=== PATIENT | female | born 1990 | race Caucasian/White ===

== ENCOUNTER → 2016-08-07 | Outpatient (REF) | payer BC, OTHER ==
[2016-08-08 13:55] LABS: CALCIUM OXALATE CRYSTALS LARGE
== END ==
LOC: M SFHCPLAZ 12:58
PROVIDERS: ATTEND Physician Assistant Medical
DX: R30.0 Dysuria (principal)

== ENCOUNTER → 2016-11-30 | Outpatient (REF) | payer OTHER | LOC: M SFHCPLAZ 14:44 | PROVIDERS: ATTEND Family Medicine | DX: J03.90 Acute tonsillitis, unspecified (principal) ==

== ENCOUNTER → 2017-04-10 | Outpatient (REF) | payer OTHER | LOC: M SFHCPLAZ 08:20 | DX: R19.7 Diarrhea, unspecified (principal); Z00.00 Encounter for general adult medical examination without abnormal findings; R11.2 Nausea with vomiting, unspecified; K59.00 Constipation, unspecified ==

== ENCOUNTER → 2017-04-11 | Outpatient (CLI) | payer OTHER ==
[2017-04-11 20:51] LABS: BASO # 0.1 10^3/uL (0.0-0.2); BASO % 0.3 % (0.0-1.0); EOS % 0.3 % (0.0-3.0); HEMATOCRIT 44.2 % (36.0-47.0); IMMATURE GRANULOCYTE # 0.1 10^3/uL (0-0); IMMATURE GRANULOCYTE % 0.6 % (0-0); LYMPH # 2.2 10^3/uL (1.5-6.5); LYMPH % 14.1 % (24.0-44.0); MEAN CORPUSCULAR HEMOGLOBIN 30.7 pg (27.0-33.0); MEAN CORPUSCULAR HGB CONC 33.9 g/dl (32.0-36.5); MEAN CORPUSCULAR VOLUME 90.6 fl (80.0-96.0); MONO # 0.8 10^3/uL (0.0-0.8); NEUTROPHILS # 12.5 10^3/uL (1.8-7.7); NEUTROPHILS % 79.7 % (36.0-66.0); PLATELET COUNT, AUTOMATED 305 10^3/uL (150-450); RED BLOOD COUNT 4.88 10^6/uL (4.00-5.40); RED CELL DISTRIBUTION WIDTH 12.1 % (11.5-14.5); WHITE BLOOD COUNT 15.6 10^3/uL (4.0-10.0)
[2017-04-11 21:17] LABS: ALBUMIN 4.4 GM/DL (3.2-5.2); ALBUMIN/GLOBULIN RATIO 1.33 (1.00-1.93); ALKALINE PHOSPHATASE 120 U/L (45-117); ALT/SGPT 43 U/L (12-78); ANION GAP 9 MEQ/L (8-16); AST/SGOT 83 U/L (7-37); BILIRUBIN,TOTAL 0.2 MG/DL (0.2-1.0); BLOOD UREA NITROGEN 9 MG/DL (7-18); CALCIUM LEVEL 9.2 MG/DL (8.5-10.1); CARBON DIOXIDE LEVEL 25 MEQ/L (21-32); CHLORIDE LEVEL 105 MEQ/L (98-107); CREATININE FOR GFR 0.71 MG/DL (0.55-1.02); FREE T4 1.03 NG/DL (0.76-1.46); GLOMERULAR FILTRATION RATE > 60.0 (>60); GLUCOSE, FASTING 115 MG/DL (70-100); POTASSIUM SERUM 3.6 MEQ/L (3.5-5.1); SODIUM LEVEL 139 MEQ/L (136-145); THYROID STIMULATING HORMONE 0.732 uIU/ML (0.358-3.740); TOTAL PROTEIN 7.7 GM/DL (6.4-8.2)
[2017-04-11 23:13] LABS: ERYTHROCYTE SEDIMENTATION RATE 6 mm/hr (0-20)
[2017-04-13 14:12] LABS: TISSUE TRANSGLUTAMINASE IgA <2 U/mL (0-3)
== END ==
LOC: M WUC 16:06
DX: Z00.00 Encounter for general adult medical examination without abnormal findings (principal); R19.7 Diarrhea, unspecified; R11.2 Nausea with vomiting, unspecified; K59.00 Constipation, unspecified
CPT/HCPCS: 84443

== ENCOUNTER → 2017-05-01 | Outpatient (REF) | payer OTHER | LOC: M SFHCPLAZ 11:09 | DX: Z12.4 Encounter for screening for malignant neoplasm of cervix (principal) | CPT/HCPCS: G0123 ==

== ENCOUNTER → 2017-05-02 | Outpatient (CLI) | payer OTHER ==
[2017-05-02 09:29] LABS: BASO # 0.1 10^3/uL (0.0-0.2); BASO % 0.4 % (0.0-1.0); EOS # 0.1 10^3/uL (0.0-0.50); EOS % 0.8 % (0.0-3.0); HEMATOCRIT 43.6 % (36.0-47.0); IMMATURE GRANULOCYTE % 0.3 % (0-3.0); LYMPH # 1.7 10^3/uL (1.5-6.5); LYMPH % 14.6 % (24.0-44.0); MEAN CORPUSCULAR HEMOGLOBIN 30.8 pg (27.0-33.0); MEAN CORPUSCULAR HGB CONC 34.4 g/dl (32.0-36.5); MEAN CORPUSCULAR VOLUME 89.5 fl (80.0-96.0); MONO # 0.7 10^3/uL (0.0-0.8); MONO % 6.1 % (0.0-5.0); NEUTROPHILS # 9.1 10^3/uL (1.8-7.7); NEUTROPHILS % 77.8 % (36.0-66.0); PLATELET COUNT, AUTOMATED 334 10^3/uL (150-450); RED BLOOD COUNT 4.87 10^6/uL (4.00-5.40); RED CELL DISTRIBUTION WIDTH 12.1 % (11.5-14.5); WHITE BLOOD COUNT 11.8 10^3/uL (4.0-10.0)
[2017-05-02 10:08] LABS: ALBUMIN 4.4 GM/DL (3.2-5.2); ALBUMIN/GLOBULIN RATIO 1.42 (1.00-1.93); ALKALINE PHOSPHATASE 122 U/L (45-117); ALT/SGPT 21 U/L (12-78); ANION GAP 10 MEQ/L (8-16); AST/SGOT 17 U/L (7-37); BILIRUBIN,TOTAL 0.4 MG/DL (0.2-1.0); BLOOD UREA NITROGEN 12 MG/DL (7-18); CALCIUM LEVEL 9.2 MG/DL (8.5-10.1); CARBON DIOXIDE LEVEL 24 MEQ/L (21-32); CHLORIDE LEVEL 105 MEQ/L (98-107); CREATININE FOR GFR 0.61 MG/DL (0.55-1.30); GLOMERULAR FILTRATION RATE > 60.0 (>60); GLUCOSE, FASTING 93 MG/DL (70-100); POTASSIUM SERUM 4.3 MEQ/L (3.5-5.1); SODIUM LEVEL 139 MEQ/L (136-145); TOTAL PROTEIN 7.5 GM/DL (6.4-8.2)
== END ==
LOC: M WUC 08:05
DX: R19.7 Diarrhea, unspecified (principal); R79.89 Other specified abnormal findings of blood chemistry

== ENCOUNTER 2019-04-19 23:41 | Emergency (ER) | payer BC, OTHER ==
[~2019-04-19] VITALS: Ht 152.4 cm; Wt 78.5 kg
[2019-04-20] MEDS ORDERED: AUGM875T28 PO (00:36)
[2019-04-20] MEDS ORDERED: AUGMENTIN 875 MG TAB PO ONE (00:45)
[2019-04-20 01:02] VITALS: BP 170/98
== END 2019-04-20 01:04 | disposition home or self-care (01) ==
LOC: M ED 23:41
DX: L05.01 Pilonidal cyst with abscess (principal)

== ENCOUNTER → 2023-07-25 | Outpatient (CLI) | payer MEDICARE, OTHER ==
[~2023-07-25] MED LIST: AUGM875T28 PO
[2023-07-25 16:00] LABS: BASO # 0.1 10^3/uL (0.0-0.2); BASO % 0.4 % (0.0-1.0); HEMOGLOBIN 16.3 g/dl (12.0-15.5); LYMPH # 1.3 10^3/uL (1.5-5.0); LYMPH % 7.9 % (24.0-44.0); MEAN CORPUSCULAR HEMOGLOBIN 32.7 pg (27.0-33.0); MEAN CORPUSCULAR VOLUME 96.4 fl (80.0-96.0); MONO # 0.9 10^3/uL (0.0-0.8); MONO % 5.5 % (2.0-8.0); NEUTROPHILS # 14.2 10^3/uL (1.5-8.5); NEUTROPHILS % 85.7 % (36.0-66.0); PLATELET COUNT, AUTOMATED 393 10^3/uL (150-450); RED BLOOD COUNT 4.98 10^6/uL (4.00-5.40); WHITE BLOOD COUNT 16.6 10^3/uL (4.0-10.0)
[2023-07-25 16:32] LABS: HEMOGLOBIN A1c 5.4 % (4.0-6.0)
[2023-07-25 16:49] LABS: HCG, SERUM QUALITATIVE NEGATIVE (NEGATIVE)
[2023-07-25 17:06] LABS: HIV 1&2 SCREEN NEGATIVE (NEGATIVE)
[2023-07-25 17:14] LABS: HEPATITIS C VIRUS ABY INDEX < 0.02 INDEX (<0.8)
[2023-07-25 17:17] LABS: ALBUMIN 3.6 G/DL (3.2-5.2); ALKALINE PHOSPHATASE 138 U/L (46-116); ALT/SGPT 64 U/L (7.0-40); AST/SGOT 53 U/L (<34); BILIRUBIN,TOTAL 0.5 MG/DL (0.3-1.2); BLOOD UREA NITROGEN < 5 MG/DL (9-23); CALCIUM LEVEL 10.5 MG/DL (8.5-10.1); CARBON DIOXIDE LEVEL 30 MMOL/L (20-31); CHLORIDE LEVEL 97 MMOL/L (98-107); CHOLESTEROL LEVEL 164 MG/DL (<200); CHOLESTEROL RISK RATIO 3.28 (<5); CREATININE FOR GFR 0.66 MG/DL (0.55-1.30); FREE T4 1.12 NG/DL (0.89-1.76); GLOMERULAR FILTRATION RATE > 60.0 (>60); GLUCOSE, FASTING 109 MG/DL (60-100); POTASSIUM SERUM 4.3 MMOL/L (3.5-5.1); SODIUM LEVEL 136 MMOL/L (136-145); THYROID STIMULATING HORMONE 0.933 uIU/ML (0.55-4.78); TOTAL PROTEIN 7.8 G/DL (5.7-8.2); TRIGLYCERIDES LEVEL 105 MG/DL (<150)
== END ==
LOC: M PLALAB 11:44
PROVIDERS: ATTEND Student in an Organized Health Care Education/Training Program
DX: Z76.89 Persons encountering health services in other specified circumstances (principal); Z11.3 Encounter for screening for infections with a predominantly sexual mode of transmission; Z30.016 Encounter for initial prescription of transdermal patch hormonal contraceptive device; E78.00 Pure hypercholesterolemia, unspecified

== ENCOUNTER → 2023-07-25 | Outpatient (REF) | payer MEDICARE | LOC: M SFHCPLAZ 10:46 | PROVIDERS: ATTEND Student in an Organized Health Care Education/Training Program | DX: Z76.89 Persons encountering health services in other specified circumstances (principal); Z11.3 Encounter for screening for infections with a predominantly sexual mode of transmission ==

== ENCOUNTER → 2024-01-01 | Outpatient (REF) | payer MEDICARE | LOC: M SFHCPLAZ 10:46 | PROVIDERS: ATTEND Student in an Organized Health Care Education/Training Program | DX: N94.9 Unspecified condition associated with female genital organs and menstrual cycle (principal) ==

== ENCOUNTER → 2024-01-01 | Outpatient (CLI) | payer MEDICARE ==
[2024-01-04 16:47] LABS: HSV SOURCE Serum; HSV-1 DNA Not Detected (Not Detected); HSV-2 DNA Not Detected (Not Detected)
== END ==
LOC: M PLALAB 11:15
PROVIDERS: ATTEND Student in an Organized Health Care Education/Training Program
DX: A60.04 Herpesviral vulvovaginitis (principal)

== ENCOUNTER → 2024-01-30 | Outpatient (CLI) | payer MEDICARE ==
[2024-01-30 15:56] LABS: HEPATITIS B SURFACE ANTIGEN NEGATIVE (NEGATIVE)
[2024-01-30 16:03] LABS: ALKALINE PHOSPHATASE 144 U/L (35-104); ALT/SGPT 43 U/L (7.0-40); AST/SGOT 60 U/L (<34); BILIRUBIN,TOTAL 0.4 MG/DL (0.3-1.2); BLOOD UREA NITROGEN < 5 MG/DL (9-23); CALCIUM LEVEL 9.2 MG/DL (8.5-10.1); CARBON DIOXIDE LEVEL 24 MMOL/L (20-31); CHLORIDE LEVEL 105 MMOL/L (98-107); CREATININE FOR GFR 0.52 MG/DL (0.55-1.30); GLOMERULAR FILTRATION RATE > 60.0 (>60); GLUCOSE, FASTING 93 MG/DL (60-100); HEPATITIS B SURFACE ANTIBODY NEGATIVE (POSITIVE); POTASSIUM SERUM 3.7 MMOL/L (3.5-5.1); SODIUM LEVEL 139 MMOL/L (136-145); TOTAL PROTEIN 7.7 G/DL (5.7-8.2)
== END ==
LOC: M PLALAB 12:47
PROVIDERS: ATTEND Internal Medicine Infectious Disease
DX: A60.00 Herpesviral infection of urogenital system, unspecified (principal)

== ENCOUNTER 2024-02-10 08:20 | Emergency (ER) | payer MEDICARE ==
[~2024-02-10] VITALS: Ht 152.4 cm; Wt 71.7 kg
[2024-02-10 08:23] VITALS: TEMP 98.1
[2024-02-10] MEDS ORDERED: OXYC1TAB23 (08:25)
[2024-02-10] MEDS ORDERED: LISI5TAB11 (08:25)
[2024-02-10] MEDS ORDERED: CHLORTHALIDONE 12.5MG PER 1/2 TABLET PO ONE (09:25)
[2024-02-10 09:42] VITALS: BP 150/95
[2024-02-10] MEDS: CHLORTHALIDONE 25 MG TAB PO ONE (09:43)
[2024-02-10] MEDS ORDERED: LISI5TAB11 PO (10:10)
[2024-02-10 10:29] VITALS: BP 154/99; O2SAT 100
== END 2024-02-10 10:30 | disposition home or self-care (01) ==
LOC: M ED 08:20
DX: I10 Essential (primary) hypertension (principal); R00.0 Tachycardia, unspecified; Z76.0 Encounter for issue of repeat prescription; Z79.899 Other long term (current) drug therapy

== ENCOUNTER 2024-05-28 11:25 | Emergency (ER) | payer MEDICARE ==
[~2024-05-28] VITALS: Ht 152.4 cm; Wt 71.5 kg
[~2024-05-28 11:25] MED LIST changes: +LISI5TAB11; +LISI5TAB11 PO; +OXYC1TAB23
[2024-05-28] MEDS ORDERED: TRIA0.1P12 (11:36)
[2024-05-28] MEDS ORDERED: SUCR1TAB56 (11:36)
[2024-05-28] MEDS ORDERED: LISI10TA22 (11:36)
[2024-05-28] MEDS ORDERED: ONDA-282 (11:36)
[2024-05-28] MEDS ORDERED: OMEP40CA5 (11:36)
[2024-05-28 14:48] LABS: BASO # 0.1 10^3/uL (0.0-0.2); BASO % 0.4 % (0.0-1.0); EOS # 0.1 10^3/uL (0.0-0.5); EOS % 0.6 % (0.0-3.0); HEMATOCRIT 44.6 % (36.0-47.0); LYMPH # 2.2 10^3/uL (1.5-5.0); LYMPH % 13.9 % (24.0-44.0); MEAN CORPUSCULAR HEMOGLOBIN 34.5 pg (27.0-33.0); MEAN CORPUSCULAR HGB CONC 33.6 g/dl (32.0-36.5); MEAN CORPUSCULAR VOLUME 102.5 fl (80.0-96.0); MONO # 0.9 10^3/uL (0.0-0.8); NEUTROPHILS # 12.3 10^3/uL (1.5-8.5); NEUTROPHILS % 78.5 % (36.0-66.0); PLATELET COUNT, AUTOMATED 521 10^3/uL (150-450); RED BLOOD COUNT 4.35 10^6/uL (4.00-5.40); WHITE BLOOD COUNT 15.7 10^3/uL (4.0-10.0)
[2024-05-28 14:57] LABS: KETONE, URINE AUTO RFX NEGATIVE (NEGATIVE); NITRITE, URINE AUTO RFX NEGATIVE (NEGATIVE); RBC, URINE AUTO RFX 2 /HPF (0-3); SQUAM EPITHELIAL CELL UR AURFX 3 /HPF (0-6)
[2024-05-28 14:59] LABS: ERYTHROCYTE SEDIMENTATION RATE 52 mm/hr (0-20)
[2024-05-28 15:01] LABS: LEUKOCYTE ESTERASE UR AUTO RFX 3+ (NEGATIVE); WBC, URINE AUTO RFX 65 /HPF (0-3)
[2024-05-28 15:12] LABS: LIPASE 23 U/L (12-53)
[2024-05-28 15:14] LABS: C REACTIVE PROTEIN QUANTITATIV 3.57 MG/DL (<1.0)
[2024-05-28] MEDS: methylPREDNISolone 125MG 2ML VIAL IV ONE (15:20)
[2024-05-28 15:24] LABS: HCG, SERUM QUALITATIVE NEGATIVE (NEGATIVE)
[2024-05-28] MEDS: PERCOCET 5MG/325MG TAB PO ONE (15:31)
[2024-05-28 15:47] LABS: HIV 1&2 SCREEN NEGATIVE (NEGATIVE)
[2024-05-28 15:48] LABS: ALKALINE PHOSPHATASE 136 U/L (35-104); ALT/SGPT 37 U/L (7.0-40); AST/SGOT 70 U/L (<34); BILIRUBIN,DIRECT 0.1 MG/DL (<0.4); BILIRUBIN,TOTAL 0.2 MG/DL (0.3-1.2); BLOOD UREA NITROGEN < 5 MG/DL (9-23); CALCIUM LEVEL 9.2 MG/DL (8.5-10.1); CARBON DIOXIDE LEVEL 31 MMOL/L (20-31); CHLORIDE LEVEL 101 MMOL/L (98-107); CREATININE FOR GFR 0.63 MG/DL (0.55-1.30); GLOMERULAR FILTRATION RATE > 60.0 (>60); GLUCOSE, FASTING 106 MG/DL (60-100); POTASSIUM SERUM 4.3 MMOL/L (3.5-5.1); SODIUM LEVEL 141 MMOL/L (136-145); TOTAL PROTEIN 7.7 G/DL (5.7-8.2)
[2024-05-28] MEDS ORDERED: PRED20TA PO (15:55)
[2024-05-28] MEDS ORDERED: CEFD300C PO (15:55)
[2024-05-28] MEDS: cefTRIAXone SOD 1 GM in DEXTROSE 5% (D5W) ADV/MINI-BAG 50 ML IV ONE (16:16)
[2024-05-28 16:25] VITALS: BP 121/69; TEMP 99.1; O2SAT 97
[2024-05-28 17:12] LABS: GC DNA AMPLIFICATION NEGATIVE (NEGATIVE)
[2024-05-29 12:53] LABS: Trichomonas vaginalis (AMP) NOT DETECTED (NEGATIVE)
== END 2024-05-28 17:01 | disposition home or self-care (01) ==
LOC: M ED 11:25
DX: N76.6 Ulceration of vulva (principal); K12.0 Recurrent oral aphthae; Z79.83 Long term (current) use of bisphosphonates; Z79.52 Long term (current) use of systemic steroids; Z79.899 Other long term (current) drug therapy
CPT/HCPCS: 80048; 80076; 81001; 83690; 84703; 85025; 85652; 86140; 86780; 87086; 87389; 87661; 87810; 87850; 96365; 96375; 99284; J0696; J2919

== ENCOUNTER → 2024-06-19 | Outpatient (REF) | payer MEDICARE ==
[~2024-06-19] MED LIST changes: +CEFD300C PO; +LISI10TA22; +OMEP40CA5; +ONDA-282; +PRED20TA PO; +SUCR1TAB56; +TRIA0.1P12
[2024-06-23 13:26] LABS: HPV APTIMA Not Detected (Not Detected)
== END ==
LOC: M PLALAB 11:04
PROVIDERS: ATTEND Obstetrics & Gynecology
DX: Z12.4 Encounter for screening for malignant neoplasm of cervix (principal)
CPT/HCPCS: 87624; G0123

== ENCOUNTER → 2024-07-24 | Outpatient (CLI) | payer OTHER ==
[2024-07-24 11:39] LABS: BASO # 0.1 10^3/uL (0.0-0.2); BASO % 0.5 % (0.0-1.0); EOS % 0.1 % (0.0-3.0); HEMATOCRIT 38.2 % (36.0-47.0); LYMPH # 3.1 10^3/uL (1.5-5.0); LYMPH % 21.6 % (24.0-44.0); MEAN CORPUSCULAR HEMOGLOBIN 35.3 pg (27.0-33.0); MEAN CORPUSCULAR VOLUME 103.8 fl (80.0-96.0); MONO # 1.2 10^3/uL (0.0-0.8); MONO % 8.4 % (2.0-8.0); NEUTROPHILS # 9.7 10^3/uL (1.5-8.5); NEUTROPHILS % 67.5 % (36.0-66.0); PLATELET COUNT, AUTOMATED 367 10^3/uL (150-450); RED BLOOD COUNT 3.68 10^6/uL (4.00-5.40); WHITE BLOOD COUNT 14.4 10^3/uL (4.0-10.0)
[2024-07-24 11:50] LABS: ERYTHROCYTE SEDIMENTATION RATE 35 mm/hr (0-20)
[2024-07-24 12:06] LABS: C REACTIVE PROTEIN QUANTITATIV 0.69 MG/DL (<1.0); CREATININE, URINE 145.2 MG/DL
[2024-07-24 12:07] LABS: ALBUMIN 3.2 G/DL (3.2-5.2); ALKALINE PHOSPHATASE 90 U/L (35-104); ALT/SGPT 30 U/L (7.0-40); AST/SGOT 33 U/L (<34); BILIRUBIN,TOTAL < 0.2 MG/DL (0.3-1.2); BLOOD UREA NITROGEN 10 MG/DL (9-23); CALCIUM LEVEL 9.4 MG/DL (8.5-10.1); CARBON DIOXIDE LEVEL 29 MMOL/L (20-31); CHLORIDE LEVEL 102 MMOL/L (98-107); CHOLESTEROL LEVEL 203 MG/DL (<200); CHOLESTEROL RISK RATIO 3.67 (<5); CREATININE FOR GFR 0.71 MG/DL (0.55-1.30); GLOMERULAR FILTRATION RATE > 90.0 (>60); GLUCOSE, FASTING 90 MG/DL (60-100); HDL CHOLESTEROL 55.2 MG/DL (>40); LDL CHOLESTEROL 104.6 MG/DL (<100); MAU/CREAT RATIO 69.5 MCG/MG (0.0-30.0); NON-HDL-C 147.8 MG/DL; POTASSIUM SERUM 3.6 MMOL/L (3.5-5.1); SODIUM LEVEL 140 MMOL/L (136-145); TOTAL PROTEIN 6.8 G/DL (5.7-8.2); TRIGLYCERIDES LEVEL 216 MG/DL (<150)
[2024-07-24 12:10] LABS: FREE T4 1.24 NG/DL (0.89-1.76)
[2024-07-24 12:11] LABS: THYROID STIMULATING HORMONE 2.102 uIU/ML (0.55-4.78)
[2024-07-24 12:16] LABS: HEMOGLOBIN A1c 5.8 % (4.0-6.0)
[2024-07-27 14:22] LABS: ANA SCREEN, IFA NEGATIVE (NEGATIVE)
[2024-07-28 14:12] LABS: IgG SUBCLASS 4(ONLY) 60.5 mg/dL (4.0-86.0)
== END ==
LOC: M PLALAB 08:34
PROVIDERS: ATTEND Student in an Organized Health Care Education/Training Program
DX: M25.562 Pain in left knee (principal)

== ENCOUNTER → 2024-10-01 | Outpatient (CLI) | payer OTHER | LOC: M PLALAB 11:11 | PROVIDERS: ATTEND Student in an Organized Health Care Education/Training Program | DX: M25.562 Pain in left knee (principal); M35.2 Behcet's disease ==

== ENCOUNTER → 2024-10-07 | Outpatient (CLI) | payer OTHER | LOC: M RAD 07:54 | PROVIDERS: ATTEND Internal Medicine Cardiovascular Disease | DX: Q25.1 Coarctation of aorta (principal) ==

== ENCOUNTER 2025-01-11 11:55 | Day surgery (SDC) | payer OTHER ==
[~2025-01-11] VITALS: Ht 152.4 cm; Wt 72.8 kg
[~2025-01-11 11:55] MED LIST changes: -LISI10TA22; +LISI10TA22 PO
[2025-01-11 13:52] LABS: BASO # 0.1 10^3/uL (0.0-0.2); BASO % 0.3 % (0.0-1.0); EOS # 0.1 10^3/uL (0.0-0.5); EOS % 0.3 % (0.0-3.0); LYMPH # 1.7 10^3/uL (1.5-5.0); LYMPH % 8.8 % (24.0-44.0); MONO # 1.1 10^3/uL (0.0-0.8); MONO % 5.8 % (2.0-8.0); NEUTROPHILS # 16.0 10^3/uL (1.5-8.5); NEUTROPHILS % 84.3 % (36.0-66.0); PLATELET COUNT, AUTOMATED 495 10^3/uL (150-450)
[2025-01-11 13:53] LABS: KETONE, URINE AUTO RFX NEGATIVE (NEGATIVE); MUCUS, URINE RFX SMALL (NEGATIVE); NITRITE, URINE AUTO RFX NEGATIVE (NEGATIVE); RBC, URINE AUTO RFX 37 /HPF (0-3); SQUAM EPITHELIAL CELL UR AURFX 10 /HPF (0-6)
[2025-01-11 13:54] LABS: LEUKOCYTE ESTERASE UR AUTO RFX 3+ (NEGATIVE); WBC, URINE AUTO RFX TNTC /HPF (0-3)
[2025-01-11 14:17] LABS: ALT/SGPT < 9 U/L (7.0-40); AST/SGOT 10 U/L (<34); CALCIUM LEVEL 9.4 MG/DL (8.5-10.1); CARBON DIOXIDE LEVEL 27 MMOL/L (20-31); CHLORIDE LEVEL 102 MMOL/L (98-107); CREATININE FOR GFR 0.77 MG/DL (0.55-1.30); GLOMERULAR FILTRATION RATE > 90.0 (>60); POTASSIUM SERUM 4.1 MMOL/L (3.5-5.1); SODIUM LEVEL 139 MMOL/L (136-145)
[2025-01-11 14:19] LABS: HCG, SERUM QUALITATIVE NEGATIVE (NEGATIVE)
[2025-01-11] MEDS ORDERED: ISOVUE-370 76% 100 ML VIAL As Ordered ONE (15:30)
[2025-01-11] MEDS: KETOROLAC 30 MG/ML 1 ML VIAL IV ONE (15:54)
[2025-01-11] MEDS: NS (Normal Saline) 0.9% 2,180 ML in IV 1 EA IV ONE (15:55)
[2025-01-11] MEDS: PIPERACILLIN/TAZOBACTAM SOD 3.375 GM in DEXTROSE 5% (D5W) ADV/MINI-BAG 50 ML IV ONE (16:29)
[2025-01-11] MEDS ORDERED: BISO5TAB14 PO (17:14)
[2025-01-11] MEDS ORDERED: APRE30TA3 PO (17:14)
[2025-01-11] MEDS ORDERED: NAPR220C23 PO (17:15)
[2025-01-11] MEDS ORDERED: HOME MED LIST COMPLETE! XX SCH (17:20)
[2025-01-11] MEDS: MORPHINE 4 MG/ML 1 ML VIAL IV PRN (18:35)
[2025-01-11] MEDS: ONDANSETRON 4MG/2ML VIAL IV ONE ×2 (18:35→23:21)
[2025-01-11] MEDS: NS (Normal Saline) 0.9% 1,000 ML IV SCH (18:36)
[2025-01-11] MEDS ORDERED: ONDANSETRON 4MG/2ML VIAL IV PRN (20:50)
[2025-01-11] MEDS: LR 1,000 ML IV SCH (21:25)
[2025-01-11] MEDS ORDERED: KETOROLAC 30 MG/ML 1 ML VIAL As Ordered ONE (22:04)
[2025-01-11] MEDS ORDERED: SUGAMMADEX SODIUM 200 MG/2 ML VIAL As Ordered ONE (22:04)
[2025-01-11] MEDS ORDERED: ONDANSETRON 4MG/2ML VIAL As Ordered ONE (22:04)
[2025-01-11] MEDS ORDERED: MIDAZOLAM INJ 2 MG/2 ML VIAL As Ordered ONE (22:04)
[2025-01-11] MEDS ORDERED: LIDOCAINE 2% 100 MG/5 ML SDV (FOR ANES.) As Ordered ONE (22:04)
[2025-01-11] MEDS ORDERED: dexAMETHasone 4 MG/ML 1 ML VIAL As Ordered ONE (22:04)
[2025-01-11] MEDS ORDERED: ACETAMINOPHEN 1000MG/100ML IV BAG As Ordered ONE (22:05)
[2025-01-11] MEDS ORDERED: ROCURONIUM BROMIDE 50MG/5ML VIAL As Ordered ONE (22:05)
[2025-01-11] MEDS ORDERED: SUCCINYLCHOLINE 100MG/5ML SYRINGE As Ordered ONE (22:09)
[2025-01-11] MEDS: PIPERACILLIN/TAZOBACTAM SOD 3.375 GM in DEXTROSE 5% (D5W) ADV/MINI-BAG 50 ML IV SCH (23:00)
[2025-01-11] MEDS: HYDROMORPHONE HCL 0.5 MG/0.5 ML SYRINGE IV PRN (23:21)
[2025-01-12] VITALS (7 sets, daily range): BP systolic 111–124; BP diastolic 56–76; TEMP 97–99.5; O2SAT 95–99
[2025-01-12] MEDS ORDERED: ZOSYN 3.375GM VIAL As Ordered ONE (01:16)
[2025-01-12] MEDS: LIDOCAINE 1% SDV 30 ML VIAL As Ordered ONE (02:40)
[2025-01-12] MEDS ORDERED: PERCOCET 5MG/325MG TAB PO PRN (02:50)
[2025-01-12] MEDS ORDERED: ONDANSETRON 4MG/2ML VIAL IV PRN (02:55)
[2025-01-12] MEDS ORDERED: MORPHINE 4 MG/ML 1 ML VIAL IV PRN (02:55)
[2025-01-12] MEDS: PERCOCET 5MG/325MG TAB PO PRN (03:47)
[2025-01-12 07:01] LABS: BASO # 0.0 10^3/uL (0.0-0.2); BASO % 0.2 % (0.0-1.0); EOS # 0.0 10^3/uL (0.0-0.5); EOS % 0.0 % (0.0-3.0); LYMPH # 0.7 10^3/uL (1.5-5.0); LYMPH % 4.0 % (24.0-44.0); MONO # 0.2 10^3/uL (0.0-0.8); MONO % 1.0 % (2.0-8.0); NEUTROPHILS # 17.5 10^3/uL (1.5-8.5); NEUTROPHILS % 94.2 % (36.0-66.0)
[2025-01-12 07:19] LABS: PLATELET COUNT, AUTOMATED 378 10^3/uL (150-450)
[2025-01-12 07:26] LABS: CALCIUM LEVEL 9.5 MG/DL (8.5-10.1); CARBON DIOXIDE LEVEL 24.0 MMOL/L (20-31); CHLORIDE LEVEL 104.0 MMOL/L (98-107); CREATININE FOR GFR 0.9 MG/DL (0.55-1.30); GLOMERULAR FILTRATION RATE 87.1 (>60); POTASSIUM SERUM 4.4 MMOL/L (3.5-5.1); SODIUM LEVEL 139.0 MMOL/L (136-145)
[2025-01-12] MEDS: KETOROLAC 30 MG/ML 1 ML VIAL IV ONE (11:29)
[2025-01-12] MEDS ORDERED: LEVO1TAB39 PO (13:37)
[2025-01-12] MEDS ORDERED: PERCOCET PO (13:37)
== END 2025-01-12 14:05 | disposition home or self-care (01) ==
LOC: M ED 11:55 → M SDC 20:50 → M ED INP 01-12 02:50 → M PED 01-12 03:28 → M SDC 01-12 14:05
PROVIDERS: ATTEND Surgery
DX: K35.891 Other acute appendicitis without perforation, with gangrene (principal); K66.0 Peritoneal adhesions (postprocedural) (postinfection); M35.2 Behcet's disease; Q25.1 Coarctation of aorta; Z87.74 Personal history of (corrected) congenital malformations of heart and circulatory system; K58.9 Irritable bowel syndrome, unspecified; I10 Essential (primary) hypertension; K21.9 Gastro-esophageal reflux disease without esophagitis; M19.90 Unspecified osteoarthritis, unspecified site; Z87.440 Personal history of urinary (tract) infections; Z79.899 Other long term (current) drug therapy
CPT/HCPCS: 36415; 44970; 80048; 80076; 81001; 83605; 83690; 84703; 85025; 87040; 87086; 88304; 96361; 96365; 96366; 96375; 96376; 99284; J0131; J0665; J1100; J1171; J1885; J2250; J2405; J2543; J3010; Q9967